=== PATIENT | male | born 1955 | race Caucasian/White ===

== ENCOUNTER 2017-11-25 17:45 | Inpatient (IN) | payer MEDICAID, MEDICARE ==
[~2017-11-25] VITALS: Ht 170.2 cm; Wt 55.8 kg
[~2017-11-25 17:45] MED LIST: AUD NEB; CLON2 PO; LISI-662 PO; OMEP10 PO; QUET50TA PO
[2017-11-26] MEDS ORDERED: PNEUMOCOCCAL VACCINE POLYVALENT 0.5 ML VIAL [PPSV23] IM ONE (00:15)
[2017-11-26 00:19] VITALS: BP 134/63
[2017-11-26] MEDS: ZOLPIDEM TARTRATE 10 MG TABLET PO PRN (00:46)
[2017-11-26] MEDS: HALOPERIDOL 5 MG TABLET PO PRN ×2 (00:46→11:03)
[2017-11-26 08:02] VITALS: BP 116/88
[2017-11-26] MEDS: LORazepam 2 MG TABLET PO PRN (11:03)
[2017-11-26 16:00] VITALS: BP 133/66
[2017-11-26] MEDS ORDERED: QUEtiapine FUMARATE 25 MG TABLET PO SCH (17:00)
[2017-11-26] MEDS: QUEtiapine FUMARATE 100 MG TABLET PO SCH (20:24)
[2017-11-26] MEDS ORDERED: LOPERAMIDE HCL 2 MG CAPSULE PO PRN (20:45)
[2017-11-26] MEDS ORDERED: PETROLATUM,WHITE 71 GM JELLY TP PRN (20:45)
[2017-11-26] MEDS ORDERED: ONDANSETRON HCL 4 MG TABLET PO PRN (20:45)
[2017-11-26] MEDS ORDERED: ALBUTEROL SULFATE HFA 90 MCG/PUFF 8 GM INHALER IH PRN (20:45)
[2017-11-26] MEDS ORDERED: ACETAMINOPHEN 325 MG TABLET PO PRN (20:45)
[2017-11-26] MEDS ORDERED: BACITRACIN 28.4 GM OINTMENT TP PRN (20:45)
[2017-11-26] MEDS ORDERED: CloNIDine HCL 0.1 MG TABLET PO PRN (20:45)
[2017-11-26] MEDS ORDERED: MAG HYDROX/AL HYDROX/SIMETH ES 30 ML SUSPENSION UDCUP PO PRN (20:45)
[2017-11-26] MEDS ORDERED: MAGNESIUM HYDROXIDE SUSPENSION 30 ML UDCUP PO PRN (20:45)
[2017-11-26] MEDS ORDERED: BENZOCAINE/MENTHOL LOZENGE MM PRN (20:45)
[2017-11-26] MEDS ORDERED: QUEtiapine FUMARATE 200 MG TABLET PO SCH (21:00)
[2017-11-27 06:30] VITALS: BP 131/68
[2017-11-27] MEDS: OMEPRAZOLE 20 MG CAPSULE PO SCH (08:11)
[2017-11-27] MEDS: TAMSULOSIN HCL 0.4 MG CAPSULE PO SCH (08:11)
[2017-11-27] MEDS: DOCUSATE SODIUM 100 MG CAPSULE PO SCH (08:11)
[2017-11-27] MEDS: LISINOPRIL 20 MG TABLET PO SCH (08:11)
[2017-11-27 08:29] VITALS: BP 129/87
[2017-11-27 16:05] VITALS: BP 119/67
[2017-11-27] MEDS: LORazepam 2 MG TABLET PO PRN (16:24)
[2017-11-27] MEDS: BENZTROPINE MESYLATE 1 MG TABLET PO SCH (16:24)
[2017-11-27] MEDS: QUEtiapine FUMARATE 100 MG TABLET PO SCH (20:35)
[2017-11-27] MEDS: ZOLPIDEM TARTRATE 10 MG TABLET PO PRN (20:35)
[2017-11-28 05:23] VITALS: BP 117/65
[2017-11-28] MEDS: LISINOPRIL 20 MG TABLET PO SCH (08:01)
[2017-11-28] MEDS: OMEPRAZOLE 20 MG CAPSULE PO SCH (08:01)
[2017-11-28] MEDS: DOCUSATE SODIUM 100 MG CAPSULE PO SCH (08:01)
[2017-11-28] MEDS: BENZTROPINE MESYLATE 1 MG TABLET PO SCH ×2 (08:01→16:55)
[2017-11-28] MEDS: TAMSULOSIN HCL 0.4 MG CAPSULE PO SCH (08:01)
[2017-11-28] MEDS: LORazepam 2 MG TABLET PO PRN ×2 (08:01→16:55)
[2017-11-28 08:21] VITALS: BP 137/88
[2017-11-28 08:50] LABS: BASOPHILS % (AUTO) 1.1 % (0.0-2.0); EOSINOPHILS % (AUTO) 1.3 % (1.0-6.0); HEMATOCRIT 44.4 % (41-53); HEMOGLOBIN 15.7 g/dL (13.5-17.5); LYMPHOCYTES # (AUTO) 1.1 K/uL (1.0-4.8); LYMPHOCYTES % (AUTO) 22.2 % (22.0-44.0); MEAN CORPUSCULAR HEMOGLOBIN 33.3 pg (26.0-34.0); MEAN CORPUSCULAR HGB CONC 35.3 G/dL (31.0-37.0); MEAN CORPUSCULAR VOLUME 94 fL (80-100); MONOCYTES # (AUTO) 0.4 K/uL (0.1-1.0); MONOCYTES % (AUTO) 7.6 % (2.0-9.0); NEUTROPHILS # (AUTO) 3.4 K/uL (1.8-7.7); NEUTROPHILS % (AUTO) 67.8 % (40.0-70.0); PLATELET COUNT (AUTO) 160 K/uL (150-450); RED BLOOD CELL COUNT(AUTO) 4.71 MIL/uL (4.50-5.90); RED CELL DISTRIBUTION WIDTH 13.6 % (11.5-14.5)
[2017-11-28 09:43] LABS: ALANINE AMINOTRANSFERASE 24 U/L (12-78); ALBUMIN 4.1 g/dL (3.4-5.0); ALKALINE PHOSPHATASE 76 U/L (46-116); ANION GAP 7 mmol/L (8-16); ASPARTATE AMINOTRANSFERASE 19 U/L (15-37); BILIRUBIN,TOTAL 0.4 mg/dL (0.1-1.0); CALCIUM, TOTAL 8.6 mg/dL (8.8-10.5); CARBON DIOXIDE 29 mmol/L (22-29); CHLORIDE 104 mmol/L (98-107); CHOL/HDL RATIO 2.4 (4.2-7.3); CHOLESTEROL 134 mg/dL (131-200); FREE T4 (FREE THYROXINE) 0.84 ng/dL (0.76-1.46); GLOMERULAR FILTR. RATE CALC > 60 mL/min (>60); GLUCOSE,RANDOM 83 mg/dL (70-110); HDL CHOLESTEROL 55 mg/dL (40-60); LDL CHOL (CALC.) 72 mg/dL (0-130); POTASSIUM 4.9 mmol/L (3.5-5.1); SODIUM SERUM 140 mmol/L (136-145); THYROID STIMULATING HORMONE 1.81 uIU/mL (0.36-3.74); TOTAL PROTEIN, SERUM 7.3 g/dL (6.4-8.2); TRIGLYCERIDES 37 mg/dL (15-150); UREA NITROGEN, BLOOD 24 mg/dL (7-18)
[2017-11-28 09:44] LABS: HEMOGLOBIN A1C 5.8 % (4.5-6.2)
[2017-11-28 16:05] VITALS: BP 124/78
[2017-11-28] MEDS: HALOPERIDOL 5 MG TABLET PO PRN (18:55)
[2017-11-28] MEDS: QUEtiapine FUMARATE 200 MG TABLET PO SCH (20:36)
[2017-11-28] MEDS: ZOLPIDEM TARTRATE 10 MG TABLET PO PRN (20:36)
[2017-11-29 08:03] VITALS: BP 110/65
[2017-11-29] MEDS: OMEPRAZOLE 20 MG CAPSULE PO SCH (08:11)
[2017-11-29] MEDS: LISINOPRIL 20 MG TABLET PO SCH (08:11)
[2017-11-29] MEDS: TAMSULOSIN HCL 0.4 MG CAPSULE PO SCH (08:11)
[2017-11-29] MEDS: BENZTROPINE MESYLATE 1 MG TABLET PO SCH ×2 (08:11→16:26)
[2017-11-29] MEDS: DOCUSATE SODIUM 100 MG CAPSULE PO SCH (08:11)
[2017-11-29 16:19] VITALS: BP 108/73
[2017-11-29] MEDS: LORazepam 2 MG TABLET PO PRN (16:26)
[2017-11-29] MEDS: QUEtiapine FUMARATE 200 MG TABLET PO SCH (20:23)
[2017-11-30 06:28] VITALS: BP 123/88
[2017-11-30 08:11] VITALS: BP 106/52
[2017-11-30] MEDS: TAMSULOSIN HCL 0.4 MG CAPSULE PO SCH (08:36)
[2017-11-30] MEDS: BENZTROPINE MESYLATE 1 MG TABLET PO SCH ×2 (08:36→16:29)
[2017-11-30] MEDS: OMEPRAZOLE 20 MG CAPSULE PO SCH (08:36)
[2017-11-30] MEDS: DOCUSATE SODIUM 100 MG CAPSULE PO SCH (08:36)
[2017-11-30] MEDS: LISINOPRIL 20 MG TABLET PO SCH ×3 (08:37→08:50)
[2017-11-30 08:42] VITALS: BP 140/66
[2017-11-30] MEDS: LORazepam 2 MG TABLET PO PRN ×2 (08:50→16:29)
[2017-11-30] MEDS: HALOPERIDOL 5 MG TABLET PO PRN (09:21)
[2017-11-30 16:09] VITALS: BP 113/61
[2017-11-30] MEDS: QUEtiapine FUMARATE 200 MG TABLET PO SCH (20:10)
[2017-11-30] MEDS: ZOLPIDEM TARTRATE 10 MG TABLET PO PRN (20:10)
[2017-12-01 05:56] VITALS: BP 118/68
[2017-12-01 08:01] VITALS: BP 114/83
[2017-12-01] MEDS: TAMSULOSIN HCL 0.4 MG CAPSULE PO SCH (08:09)
[2017-12-01] MEDS: DOCUSATE SODIUM 100 MG CAPSULE PO SCH (08:09)
[2017-12-01] MEDS: BENZTROPINE MESYLATE 1 MG TABLET PO SCH ×2 (08:09→16:56)
[2017-12-01] MEDS: OMEPRAZOLE 20 MG CAPSULE PO SCH (08:09)
[2017-12-01] MEDS: LISINOPRIL 20 MG TABLET PO SCH (08:09)
[2017-12-01] MEDS: QUEtiapine FUMARATE 100 MG TABLET PO SCH (09:27)
[2017-12-01 16:02] VITALS: BP_SYST 114; BP_SYST 122; BP_DIAS 80; BP_DIAS 83
[2017-12-01] MEDS: HALOPERIDOL 5 MG TABLET PO PRN (16:56)
[2017-12-01] MEDS: LORazepam 2 MG TABLET PO PRN (16:56)
[2017-12-01] MEDS: IBUPROFEN 600 MG TABLET PO PRN (16:56)
[2017-12-01] MEDS: ZOLPIDEM TARTRATE 10 MG TABLET PO PRN (20:55)
[2017-12-01] MEDS: QUEtiapine FUMARATE 200 MG TABLET PO SCH (20:55)
[2017-12-02 08:20] VITALS: BP 116/72
[2017-12-02] MEDS: LORazepam 2 MG TABLET PO PRN (09:23)
[2017-12-02] MEDS: HALOPERIDOL 5 MG TABLET PO PRN (09:23)
[2017-12-02] MEDS: TAMSULOSIN HCL 0.4 MG CAPSULE PO SCH (09:23)
[2017-12-02] MEDS: OMEPRAZOLE 20 MG CAPSULE PO SCH (09:23)
[2017-12-02] MEDS: QUEtiapine FUMARATE 100 MG TABLET PO SCH (09:23)
[2017-12-02] MEDS: BENZTROPINE MESYLATE 1 MG TABLET PO SCH ×2 (09:23→16:34)
[2017-12-02] MEDS: DOCUSATE SODIUM 100 MG CAPSULE PO SCH (09:23)
[2017-12-02] MEDS: LISINOPRIL 20 MG TABLET PO SCH (09:23)
[2017-12-02] MEDS: IBUPROFEN 600 MG TABLET PO PRN (16:34)
[2017-12-02 16:36] VITALS: BP 111/75
[2017-12-02] MEDS: QUEtiapine FUMARATE 200 MG TABLET PO SCH (20:28)
[2017-12-03 06:29] VITALS: BP 118/62
[2017-12-03 08:01] VITALS: BP 135/70
[2017-12-03] MEDS: BENZTROPINE MESYLATE 1 MG TABLET PO SCH ×2 (08:47→17:00)
[2017-12-03] MEDS: TAMSULOSIN HCL 0.4 MG CAPSULE PO SCH (08:47)
[2017-12-03] MEDS: OMEPRAZOLE 20 MG CAPSULE PO SCH (08:47)
[2017-12-03] MEDS: DOCUSATE SODIUM 100 MG CAPSULE PO SCH (08:47)
[2017-12-03] MEDS: QUEtiapine FUMARATE 100 MG TABLET PO SCH (08:48)
[2017-12-03] MEDS: LISINOPRIL 20 MG TABLET PO SCH (08:48)
[2017-12-03] MEDS ORDERED: CHOLECALCIFEROL (VIT D3) 1,000 UNITS TABLET PO SCH (09:00)
[2017-12-03] MEDS: QUEtiapine FUMARATE 200 MG TABLET PO SCH (21:00)
== END 2017-12-03 22:57 | disposition short-term general hospital (02) | DRG 885 ==
LOC: B3A 23:38
DX: F20.1 Disorganized schizophrenia (principal); N39.0 Urinary tract infection, site not specified; G40.909 Epilepsy, unspecified, not intractable, without status epilepticus; I10 Essential (primary) hypertension; J44.9 Chronic obstructive pulmonary disease, unspecified; K21.9 Gastro-esophageal reflux disease without esophagitis; K40.90 Unilateral inguinal hernia, without obstruction or gangrene, not specified as recurrent; F20.0 Paranoid schizophrenia; K59.00 Constipation, unspecified; N40.1 Benign prostatic hyperplasia with lower urinary tract symptoms; F09 Unspecified mental disorder due to known physiological condition; N39.498 Other specified urinary incontinence; F41.9 Anxiety disorder, unspecified; Z56.0 Unemployment, unspecified; Z79.899 Other long term (current) drug therapy; Z79.51 Long term (current) use of inhaled steroids; Z88.8 Allergy status to other drugs, medicaments and biological substances; Z91.81 History of falling; Z28.21 Immunization not carried out because of patient refusal; Z82.49 Family history of ischemic heart disease and other diseases of the circulatory system; Z81.1 Family history of alcohol abuse and dependence; Z84.89 Family history of other specified conditions; Z81.3 Family history of other psychoactive substance abuse and dependence; Z71.6 Tobacco abuse counseling
CPT/HCPCS: 76856; 82306; 83036; 84439; 84443

== ENCOUNTER 2017-12-03 13:21 | Inpatient (IN) | payer MEDICAID, MEDICARE ==
[~2017-12-03] VITALS: Ht 172.7 cm; Wt 60.2 kg
[2017-12-03 10:58] VITALS: BP 138/75
[2017-12-03] MEDS ORDERED: SODIUM CHLORIDE 0.9% 1,000 ML IV ONE ×2 (15:00→16:30)
[2017-12-03 15:09] LABS: BASOPHILS % (AUTO) 0.4 % (0.0-2.0); EOSINOPHILS % (AUTO) 2.3 % (1.0-6.0); HEMATOCRIT 38.5 % (41-53); HEMOGLOBIN 13.2 g/dL (13.5-17.5); LYMPHOCYTES # (AUTO) 0.7 K/uL (1.0-4.8); LYMPHOCYTES % (AUTO) 11.8 % (22.0-44.0); MEAN CORPUSCULAR HEMOGLOBIN 32.4 pg (26.0-34.0); MEAN CORPUSCULAR HGB CONC 34.1 G/dL (31.0-37.0); MEAN CORPUSCULAR VOLUME 95 fL (80-100); MONOCYTES # (AUTO) 0.7 K/uL (0.1-1.0); MONOCYTES % (AUTO) 12.7 % (2.0-9.0); NEUTROPHILS % (AUTO) 72.8 % (40.0-70.0); PLATELET COUNT (AUTO) 151 K/uL (150-450); RED BLOOD CELL COUNT(AUTO) 4.07 MIL/uL (4.50-5.90); RED CELL DISTRIBUTION WIDTH 13.4 % (11.5-14.5)
[2017-12-03 15:22] LABS: ANION GAP 6 mmol/L (8-16); CALCIUM, TOTAL 8.1 mg/dL (8.8-10.5); CARBON DIOXIDE 31 mmol/L (22-29); CHLORIDE 103 mmol/L (98-107); CREATININE 0.96 mg/dL (0.60-1.30); GLOMERULAR FILTR. RATE CALC > 60 mL/min (>60); GLUCOSE,RANDOM 85 mg/dL (70-110); POTASSIUM 5.1 mmol/L (3.5-5.1); SODIUM SERUM 140 mmol/L (136-145); UREA NITROGEN, BLOOD 40 mg/dL (7-18)
[2017-12-03 15:28] LABS: ALANINE AMINOTRANSFERASE 26 U/L (12-78); ALBUMIN 3.8 g/dL (3.4-5.0); ALKALINE PHOSPHATASE 75 U/L (46-116); ASPARTATE AMINOTRANSFERASE 17 U/L (15-37); BILIRUBIN,TOTAL 0.2 mg/dL (0.1-1.0); LIPASE 130 U/L (73-393); TOTAL PROTEIN, SERUM 6.4 g/dL (6.4-8.2)
[2017-12-03] MEDS ORDERED: BARIUM SULFATE 0.1% SUSPENSION 450 ML BOTTLE PO ONE (15:45)
[2017-12-03 16:33] LABS: APPEARANCE,URINE CLEAR (CLEAR); BILIRUBIN,URINE NEGATIVE (NEGATIVE); GLUCOSE, URINE (UA) NEGATIVE (NEGATIVE); KETONES,URINE NEGATIVE (NEGATIVE); LEUKOCYTE ESTERASE ,URINE TRACE (NEGATIVE); NITRATE,URINE POSITIVE (NEGATIVE); OCCULT BLOOD,URINE NEGATIVE (NEGATIVE); PROTEIN,URINE NEGATIVE (NEGATIVE); UROBILINOGEN,URINE 0.2 mg/dL (<=1.0)
[2017-12-03 16:36] LABS: AMPHET/METH SCREEN,URINE NEGATIVE (NEGATIVE); BARBITURATE SCREEN, URINE NEGATIVE (NEGATIVE); BENZODIAZEPINES SCREEN,URINE NEGATIVE (NEGATIVE); CANNABINOID SCREEN,URINE NEGATIVE (NEGATIVE); COCAINE SCREEN,URINE NEGATIVE (NEGATIVE); METHADONE SCREEN, URINE NEGATIVE (NEGATIVE); OPIATE SCREEN,URINE NEGATIVE (NEGATIVE)
[2017-12-03 16:37] LABS: PHENCYCLIDINE SCREEN,URINE NEGATIVE (NEGATIVE)
[2017-12-03 17:21] LABS: BACTERIA,URINE Many /HPF (None Seen); RBC,URINE None Seen /HPF (0-2)
[2017-12-03 17:22] LABS: SQUAMOUS EPITHELIAL CELL,UR Rare /LPF (None Seen)
[2017-12-03] MEDS ORDERED: IOVERSOL 320 MG/ML 100 ML VIAL ONE (18:11)
[2017-12-03] MEDS ORDERED: CefTRIAXone SODIUM 2 GM in DEXTROSE 5%-WATER 20 ML IV ONE (19:30)
[2017-12-03] MEDS ORDERED: MORPHINE SULFATE 4 MG/ML SYRINGE IVP ONE (19:30)
[2017-12-03] MEDS ORDERED: 0.9% SODIUM CHLORIDE 10 ML SYRINGE IVP PRN (19:45)
[2017-12-03] MEDS ORDERED: ONDANSETRON HCL 4 MG/2 ML VIAL IVP PRN (19:45)
[2017-12-03] MEDS ORDERED: ACETAMINOPHEN 325 MG TABLET PO PRN (19:45)
[2017-12-04] VITALS (7 sets, daily range): BP systolic 106–157; BP diastolic 56–79
[2017-12-04 07:37] LABS: BASOPHILS % (AUTO) 0.3 % (0.0-2.0); EOSINOPHILS % (AUTO) 3.2 % (1.0-6.0); HEMATOCRIT 37.1 % (41-53); HEMOGLOBIN 12.9 g/dL (13.5-17.5); LYMPHOCYTES # (AUTO) 1.1 K/uL (1.0-4.8); LYMPHOCYTES % (AUTO) 22.8 % (22.0-44.0); MEAN CORPUSCULAR HGB CONC 34.8 G/dL (31.0-37.0); MEAN CORPUSCULAR VOLUME 95 fL (80-100); MONOCYTES # (AUTO) 0.4 K/uL (0.1-1.0); MONOCYTES % (AUTO) 8.6 % (2.0-9.0); NEUTROPHILS # (AUTO) 3.2 K/uL (1.8-7.7); NEUTROPHILS % (AUTO) 65.1 % (40.0-70.0); PLATELET COUNT (AUTO) 131 K/uL (150-450); RED BLOOD CELL COUNT(AUTO) 3.91 MIL/uL (4.50-5.90); RED CELL DISTRIBUTION WIDTH 14.1 % (11.5-14.5)
[2017-12-04 07:49] LABS: ALANINE AMINOTRANSFERASE 25 U/L (12-78); ALBUMIN 3.1 g/dL (3.4-5.0); ALKALINE PHOSPHATASE 65 U/L (46-116); ANION GAP 4 mmol/L (8-16); ASPARTATE AMINOTRANSFERASE 17 U/L (15-37); BILIRUBIN,TOTAL 0.2 mg/dL (0.1-1.0); CALCIUM, TOTAL 7.8 mg/dL (8.8-10.5); CARBON DIOXIDE 30 mmol/L (22-29); CHLORIDE 106 mmol/L (98-107); CREATININE 0.91 mg/dL (0.60-1.30); GLOMERULAR FILTR. RATE CALC > 60 mL/min (>60); GLUCOSE,RANDOM 83 mg/dL (70-110); POTASSIUM 4.7 mmol/L (3.5-5.1); SODIUM SERUM 140 mmol/L (136-145); TOTAL PROTEIN, SERUM 5.9 g/dL (6.4-8.2); UREA NITROGEN, BLOOD 29 mg/dL (7-18)
[2017-12-04] MEDS ORDERED: ONDANSETRON HCL 4 MG/2 ML VIAL IVP PRN (09:15)
[2017-12-04] MEDS ORDERED: ZOLPIDEM TARTRATE 5 MG TABLET PO PRN (09:15)
[2017-12-04] MEDS ORDERED: OMEPRAZOLE 10 MG CAPSULE PO SCH (09:15)
[2017-12-04] MEDS ORDERED: IPRATROPIUM BROMIDE 0.5 MG/2.5 ML NEB SOLUTION NEB PRN (09:15)
[2017-12-04] MEDS ORDERED: ALBUTEROL SULFATE 2.5 MG/0.5 ML NEB SOLUTION NEB PRN ×2 (09:15)
[2017-12-04] MEDS ORDERED: 0.9% SODIUM CHLORIDE 10 ML SYRINGE IVP PRN (09:15)
[2017-12-04] MEDS: ClonazePAM 0.5 MG TABLET PO SCH ×2 (09:58→21:00)
[2017-12-04] MEDS: HEPARIN SODIUM,PORCINE 5,000 UNITS/ML VIAL SQ SCH ×2 (09:59→16:42)
[2017-12-04] MEDS: LISINOPRIL 20 MG TABLET PO SCH (09:59)
[2017-12-04] MEDS: PANTOPRAZOLE SODIUM 40 MG DR TABLET PO SCH (09:59)
[2017-12-04] MEDS ORDERED: CefTRIAXone SODIUM 1 GM in DEXTROSE 5%-WATER 10 ML IV SCH (10:00)
[2017-12-04] MEDS: ALBUTEROL SULFATE 2.5 MG/0.5 ML NEB SOLUTION NEB SCH ×2 (14:26→20:04)
[2017-12-04] MEDS: IPRATROPIUM BROMIDE 0.5 MG/2.5 ML NEB SOLUTION NEB SCH ×2 (14:26→20:04)
[2017-12-04] MEDS: FINASTERIDE 5 MG TABLET PO SCH (18:20)
[2017-12-04] MEDS: TAMSULOSIN HCL 0.4 MG CAPSULE PO SCH (21:00)
[2017-12-05] MEDS: HEPARIN SODIUM,PORCINE 5,000 UNITS/ML VIAL SQ SCH ×3 (00:07→16:18)
[2017-12-05] MEDS: ALBUTEROL SULFATE 2.5 MG/0.5 ML NEB SOLUTION NEB SCH ×4 (02:00→19:37)
[2017-12-05] MEDS: IPRATROPIUM BROMIDE 0.5 MG/2.5 ML NEB SOLUTION NEB SCH ×4 (02:00→19:37)
[2017-12-05 05:19] VITALS: BP 130/77
[2017-12-05 07:07] LABS: BASOPHILS % (AUTO) 0.5 % (0.0-2.0); EOSINOPHILS % (AUTO) 2.2 % (1.0-6.0); HEMATOCRIT 38.3 % (41-53); HEMOGLOBIN 13.6 g/dL (13.5-17.5); LYMPHOCYTES # (AUTO) 0.9 K/uL (1.0-4.8); LYMPHOCYTES % (AUTO) 14.5 % (22.0-44.0); MEAN CORPUSCULAR HEMOGLOBIN 33.5 pg (26.0-34.0); MEAN CORPUSCULAR HGB CONC 35.4 G/dL (31.0-37.0); MEAN CORPUSCULAR VOLUME 95 fL (80-100); MONOCYTES # (AUTO) 0.4 K/uL (0.1-1.0); MONOCYTES % (AUTO) 6.7 % (2.0-9.0); NEUTROPHILS # (AUTO) 4.9 K/uL (1.8-7.7); NEUTROPHILS % (AUTO) 76.1 % (40.0-70.0); PLATELET COUNT (AUTO) 140 K/uL (150-450); RED BLOOD CELL COUNT(AUTO) 4.04 MIL/uL (4.50-5.90); RED CELL DISTRIBUTION WIDTH 13.4 % (11.5-14.5)
[2017-12-05 07:10] LABS: ANION GAP 3 mmol/L (8-16); CALCIUM, TOTAL 8.1 mg/dL (8.8-10.5); CARBON DIOXIDE 31 mmol/L (22-29); CHLORIDE 105 mmol/L (98-107); CREATININE 0.92 mg/dL (0.60-1.30); GLOMERULAR FILTR. RATE CALC > 60 mL/min (>60); GLUCOSE,RANDOM 84 mg/dL (70-110); POTASSIUM 4.5 mmol/L (3.5-5.1); SODIUM SERUM 139 mmol/L (136-145); UREA NITROGEN, BLOOD 31 mg/dL (7-18)
[2017-12-05 07:29] VITALS: BP 136/73
[2017-12-05] MEDS: TAMSULOSIN HCL 0.4 MG CAPSULE PO SCH ×2 (08:05→20:40)
[2017-12-05] MEDS: FINASTERIDE 5 MG TABLET PO SCH (08:05)
[2017-12-05] MEDS: LISINOPRIL 20 MG TABLET PO SCH (08:05)
[2017-12-05] MEDS: PANTOPRAZOLE SODIUM 40 MG DR TABLET PO SCH (08:05)
[2017-12-05] MEDS: ClonazePAM 0.5 MG TABLET PO SCH ×2 (08:05→20:41)
[2017-12-05 11:34] VITALS: BP 144/62
[2017-12-05] MEDS: SULFAMETHOX/TRIMETH DS 800-160 MG/TABLET PO SCH ×2 (12:17→20:41)
[2017-12-05 16:22] VITALS: BP 111/66
[2017-12-05 20:05] VITALS: BP 109/56
[2017-12-06 00:12] VITALS: BP 111/64
[2017-12-06] MEDS: HEPARIN SODIUM,PORCINE 5,000 UNITS/ML VIAL SQ SCH ×2 (00:13→07:56)
[2017-12-06 04:37] VITALS: BP 117/67
[2017-12-06 07:16] VITALS: BP 112/74
[2017-12-06] MEDS: IPRATROPIUM BROMIDE 0.5 MG/2.5 ML NEB SOLUTION NEB SCH (07:29)
[2017-12-06] MEDS: ALBUTEROL SULFATE 2.5 MG/0.5 ML NEB SOLUTION NEB SCH (07:29)
[2017-12-06] MEDS: PANTOPRAZOLE SODIUM 40 MG DR TABLET PO SCH (07:56)
[2017-12-06] MEDS: FINASTERIDE 5 MG TABLET PO SCH (07:56)
[2017-12-06] MEDS: LISINOPRIL 20 MG TABLET PO SCH (07:56)
[2017-12-06] MEDS: TAMSULOSIN HCL 0.4 MG CAPSULE PO SCH (07:56)
[2017-12-06] MEDS: ClonazePAM 0.5 MG TABLET PO SCH (07:56)
[2017-12-06] MEDS: SULFAMETHOX/TRIMETH DS 800-160 MG/TABLET PO SCH (07:56)
[2017-12-06] MEDS ORDERED: ASPI81 PO (12:19)
[2017-12-06] MEDS ORDERED: QUET100T PO (12:19)
[2017-12-06] MEDS ORDERED: TAMS0.4C32 PO (12:20)
[2017-12-06] MEDS ORDERED: MULT1TAB70 PO (12:20)
[2017-12-06] MEDS ORDERED: OMEP20 PO (12:21)
[2017-12-06] MEDS ORDERED: CLON.5 PO (12:28)
== END 2017-12-06 15:11 | disposition home or self-care (01) | DRG 388 ==
LOC: EMS 13:23 → 5N 22:30 → 6N 12-04 07:55
PROVIDERS: ADMIT Hospitalist; ATTEND Hospitalist
DX: K56.7 Ileus, unspecified (principal); E43 Unspecified severe protein-calorie malnutrition; N39.0 Urinary tract infection, site not specified; F20.0 Paranoid schizophrenia; N13.8 Other obstructive and reflux uropathy; K40.90 Unilateral inguinal hernia, without obstruction or gangrene, not specified as recurrent; K57.30 Diverticulosis of large intestine without perforation or abscess without bleeding; J44.9 Chronic obstructive pulmonary disease, unspecified; I10 Essential (primary) hypertension; N40.1 Benign prostatic hyperplasia with lower urinary tract symptoms; G40.909 Epilepsy, unspecified, not intractable, without status epilepticus; N40.0 Benign prostatic hyperplasia without lower urinary tract symptoms; F32.9 Major depressive disorder, single episode, unspecified; I45.9 Conduction disorder, unspecified; R32 Unspecified urinary incontinence; F17.210 Nicotine dependence, cigarettes, uncomplicated; B96.20 Unspecified Escherichia coli [E. coli] as the cause of diseases classified elsewhere; Z91.19 Patient's noncompliance with other medical treatment and regimen; Z88.8 Allergy status to other drugs, medicaments and biological substances; Z79.899 Other long term (current) drug therapy
CPT/HCPCS: 74177; 83735; 87045; 87086; 93005; 94640; 96365; 96366; 96375; 99285; J0696; J1644; J2270; J7030; J7060